=== PATIENT | male | born 1955 | race African-American/Black ===

== ENCOUNTER 2021-06-13 16:06 | Emergency (ER) | payer MEDICAID, OTHER ==
[~2021-06-13] VITALS: Ht 185.4 cm; Wt 99.8 kg
[~2021-06-13 16:06] MED LIST: AMLO5TAB4 PO; DOXY-326 PO; VALS80TA2 PO
--- NOTE | 2021-06-13 16:16 | NUR ---
THE PATIENT BIBS FOR C/O HAVING BLACK STOOL NOTED SINCE 06/08/2020. DENIES PAIN. ABDOMEN SOFT AND NON-DISTENDED. DENIES N/V. WILL CONTINUE TO MONITOR THE PATIENT.
[2021-06-13] MEDS ORDERED: OMEP20TA5 PO (16:36)
[2021-06-13 16:42] VITALS: BP 133/82
--- NOTE | 2021-06-13 16:42 | NUR ---
Patient discharged to home in stable condition. Written and verbal after care instructions given. Patient verbalizes understanding of instruction.
== END 2021-06-13 16:43 | disposition home or self-care (01) ==
LOC: ER 16:06
DX: K92.1 Melena (principal); T37.8X5A Adverse effect of other specified systemic anti-infectives and antiparasitics, initial encounter; I10 Essential (primary) hypertension; Z90.89 Acquired absence of other organs; Z88.0 Allergy status to penicillin; Z88.2 Allergy status to sulfonamides; Z88.8 Allergy status to other drugs, medicaments and biological substances; Z60.2 Problems related to living alone; Z79.899 Other long term (current) drug therapy; Y92.89 Other specified places as the place of occurrence of the external cause

== ENCOUNTER 2024-03-01 17:19 | Inpatient (IN) | payer BC, OTHER ==
[~2024-03-01] VITALS: Ht 185.4 cm; Wt 91.3 kg
[~2024-03-01 17:19] MED LIST changes: +OMEP20TA5 PO
[2024-03-01] MEDS ORDERED: FAMOTIDINE (20 MG) 20 MG TABLET ONE (20:50)
[2024-03-01] MEDS: IV NS 0.9% 1,000 ML BAG IV ONE (20:58)
[2024-03-01 20:59] LABS: BASOPHILS % (AUTO) 0.3 % (0.0-2.0); EOSINOPHILS % (AUTO) 0.4 % (0.0-6.0); HEMATOCRIT 44 % (39-51); HEMOGLOBIN 14.7 g/dL (13.5-17.5); LYMPHOCYTES # (AUTO) 1.8 K/uL (0.8-4.8); LYMPHOCYTES % (AUTO) 21.4 % (20.0-44.0); MEAN CORPUSCULAR HEMOGLOBIN 33 PG (26.0-33.0); MEAN CORPUSCULAR HGB CONC 33 g/dl (31.0-36.0); MEAN CORPUSCULAR VOLUME 98 fL (80-96); MONOCYTES # (AUTO) 1.1 K/uL (0.1-1.30); MONOCYTES % (AUTO) 12.6 % (2.0-12.0); NEUTROPHILS # (AUTO) 5.5 K/uL (1.8-8.9); NEUTROPHILS % (AUTO) 65.3 % (43.0-81.0); PLATELET COUNT (AUTO) 274 K/uL (150-450); RED BLOOD CELL COUNT(AUTO) 4.49 MIL/uL (4.5-6.0); RED CELL DISTRIBUTION WIDTH 13.6 % (11.5-15.0); WHITE BLOOD COUNT (AUTO) 8.5 K/uL (4.3-11.0)
[2024-03-01] MEDS: FAMOTIDINE (20 MG) 20 MG TABLET PO ONE (20:59)
[2024-03-01 21:36] LABS: ALBUMIN 3.5 g/dL (3.4-5.0); BILIRUBIN,DIRECT 0.1 mg/dL (0.0-0.2); CALCIUM, SERUM 8.7 mg/dL (8.5-10.1); CREATININE 2.1 mg/dL (0.6-1.3); POTASSIUM 4.6 mmol/L (3.5-5.1); TOTAL PROTEIN, SERUM 8.1 g/dL (6.4-8.2)
[2024-03-01 21:41] LABS: APPEARANCE,URINE CLEAR (CLEAR); BILIRUBIN,URINE NEGATIVE (NEGATIVE); BLOOD, URINE NEGATIVE Ery/uL (NEGATIVE); COLOR,URINE YELLOW (YELLOW); KETONES,URINE NEGATIVE (NEGATIVE); LEUKOCYTE ESTERASE ,URINE NEGATIVE (NEGATIVE); NITRITE, URINE NEGATIVE (NEGATIVE); PROTEIN,URINE TRACE mg/dl (NEGATIVE); UGLUCOSE NEGATIVE (NEGATIVE); UROBILINOGEN,URINE 0.2 EU/dL (0.2)
[2024-03-01 21:49] LABS: RBC,URINE 0-2 /HPF (0-2); WBC,URINE 0-2 /HPF (0-3)
[2024-03-01 21:50] LABS: ADD URINE CULTURE NO; BACTERIA,URINE None seen /HPF (None Seen); HYALINE CASTS, URINE Few /LPF (None Seen); MUCUS,URINE Few /LPF (None Seen)
[2024-03-01 21:56] LABS: BILIRUBIN,TOTAL 0.2 mg/dL (0.2-1.0)
[2024-03-01] MEDS ORDERED: MAG HYDROX/AL HYDROX/SIMETH 30 ML UDC ONE (23:03)
[2024-03-01] MEDS ORDERED: PANTOPRAZOLE 40 MG TABLET.DR PO ONE (23:03)
[2024-03-01] MEDS ORDERED: ZOLPIDEM TARTRATE 5 MG TABLET PO PRN (23:30)
[2024-03-01] MEDS ORDERED: ACETAMINOPHEN 325 MG TABLET PO PRN (23:30)
[2024-03-01] MEDS ORDERED: ONDANSETRON HCL/PF 4 MG/2 ML VIAL IVP PRN (23:30)
[2024-03-01] MEDS ORDERED: MAG HYDROX/AL HYDROX/SIMETH 30 ML UDC PO PRN (23:30)
[2024-03-01] MEDS ORDERED: Z GUARD REMEDY 4 OZ OINT TP PRN (23:30)
[2024-03-01] MEDS ORDERED: MAGNESIUM HYDROXIDE 30 ML UDC PO PRN (23:30)
[2024-03-01] MEDS: PANTOPRAZOLE 40 MG TABLET.DR PO ONE (23:33)
[2024-03-01] MEDS: MAG HYDROX/AL HYDROX/SIMETH 30 ML UDC PO ONE (23:33)
[2024-03-02 00:18] VITALS: BP 128/72; TEMP 98.6; O2SAT 98
[2024-03-02] MEDS: IV NS 0.9% 1,000 ML IV PRN (00:29)
[2024-03-02 00:46] VITALS: BP 128/72; TEMP 98.6; O2SAT 98
[2024-03-02 07:23] LABS: BASOPHILS % (AUTO) 0.2 % (0.0-2.0); EOSINOPHILS % (AUTO) 0.5 % (0.0-6.0); HEMATOCRIT 40 % (39-51); HEMOGLOBIN 13.6 g/dL (13.5-17.5); LYMPHOCYTES # (AUTO) 1.5 K/uL (0.8-4.8); LYMPHOCYTES % (AUTO) 21.4 % (20.0-44.0); MEAN CORPUSCULAR HEMOGLOBIN 34 PG (26.0-33.0); MEAN CORPUSCULAR HGB CONC 34 g/dl (31.0-36.0); MEAN CORPUSCULAR VOLUME 99 fL (80-96); MONOCYTES # (AUTO) 0.9 K/uL (0.1-1.30); MONOCYTES % (AUTO) 13.1 % (2.0-12.0); NEUTROPHILS # (AUTO) 4.6 K/uL (1.8-8.9); NEUTROPHILS % (AUTO) 64.8 % (43.0-81.0); PLATELET COUNT (AUTO) 264 K/uL (150-450); RED BLOOD CELL COUNT(AUTO) 4.04 MIL/uL (4.5-6.0); RED CELL DISTRIBUTION WIDTH 13.2 % (11.5-15.0); WHITE BLOOD COUNT (AUTO) 7.2 K/uL (4.3-11.0)
[2024-03-02 07:30] VITALS: BP 99/66; TEMP 97.9; O2SAT 96
[2024-03-02 07:37] LABS: CALCIUM, SERUM 8.2 mg/dL (8.5-10.1); CREATININE 1.7 mg/dL (0.6-1.3); MAGNESIUM 1.5 mg/dL (1.8-2.4); PHOSPHORUS 2.6 mg/dL (2.5-4.9); POTASSIUM 3.8 mmol/L (3.5-5.1)
[2024-03-02] MEDS ORDERED: OMEP20TA5 PO (08:05)
[2024-03-02] MEDS ORDERED: METF-442 PO (08:05)
[2024-03-02] MEDS ORDERED: AMLO-213 PO (08:05)
[2024-03-02] MEDS ORDERED: ATOR40TA PO (08:05)
[2024-03-02] MEDS ORDERED: TEST200V IM (08:06)
[2024-03-02] MEDS ORDERED: SPIR50TA PO (08:06)
[2024-03-02] MEDS ORDERED: HYDR25TA4 PO (08:06)
[2024-03-02] MEDS ORDERED: DOLU1TAB2 PO (08:06)
[2024-03-02] MEDS ORDERED: VALS320T16 PO (08:06)
[2024-03-02] MEDS: FAMOTIDINE/PF INJ 20 MG/2 ML VIAL IV SCH (08:14)
[2024-03-02] MEDS: MAGNESIUM OXIDE 400 MG TABLET PO ONE (10:28)
[2024-03-02] MEDS ORDERED: hydrALAZINE HCL IV 20 MG VIAL IV PRN (12:00)
[2024-03-02] MEDS ORDERED: DEXTROSE 50%-WATER 50 ML DISP.SYRIN IV PRN (12:00)
[2024-03-02] MEDS: BLOOD SUGAR DIAGNOSTIC 1 EACH STRIP IN SCH (12:16)
[2024-03-02] MEDS: INSULIN REGULAR, HUMAN 100 UNIT/ML 3 ML VIAL SQ PRN (12:17)
[2024-03-02] MEDS: CHOLESTYRAMINE/ASPARTAME 4 G/PKT PACKET PO SCH (12:22)
[2024-03-02] MEDS: CEFEPIME 1 GM in IV D5W 50 ML IV SCH (13:12)
[2024-03-02 16:00] VITALS: BP 107/69; TEMP 98.2; O2SAT 98
[2024-03-02 20:14] VITALS: BP 123/76; TEMP 98.8; O2SAT 97
[2024-03-03 08:00] VITALS: BP 117/60; TEMP 98.2; O2SAT 99
[2024-03-03 08:20] LABS: BASOPHILS % (AUTO) 0.4 % (0.0-2.0); EOSINOPHILS # (AUTO) 0.1 K/uL (0.0-0.7); EOSINOPHILS % (AUTO) 2.5 % (0.0-6.0); HEMATOCRIT 39 % (39-51); HEMOGLOBIN 13.3 g/dL (13.5-17.5); LYMPHOCYTES # (AUTO) 1.6 K/uL (0.8-4.8); LYMPHOCYTES % (AUTO) 29.5 % (20.0-44.0); MEAN CORPUSCULAR HEMOGLOBIN 34 PG (26.0-33.0); MEAN CORPUSCULAR HGB CONC 34 g/dl (31.0-36.0); MEAN CORPUSCULAR VOLUME 99 fL (80-96); MONOCYTES # (AUTO) 0.7 K/uL (0.1-1.30); MONOCYTES % (AUTO) 12.5 % (2.0-12.0); NEUTROPHILS % (AUTO) 55.1 % (43.0-81.0); PLATELET COUNT (AUTO) 268 K/uL (150-450); RED BLOOD CELL COUNT(AUTO) 3.91 MIL/uL (4.5-6.0); RED CELL DISTRIBUTION WIDTH 13.1 % (11.5-15.0); WHITE BLOOD COUNT (AUTO) 5.4 K/uL (4.3-11.0)
[2024-03-03] MEDS: ATORVASTATIN 40 MG TABLET PO SCH (08:25)
[2024-03-03] MEDS: AMLODIPINE BESYLATE 10 MG TABLET PO SCH (08:25)
[2024-03-03] MEDS: DOVATO PO SCH (08:27)
[2024-03-03 08:30] LABS: BILIRUBIN,TOTAL 0.4 mg/dL (0.2-1.0); CALCIUM, SERUM 8.5 mg/dL (8.5-10.1); CREATININE 1.3 mg/dL (0.6-1.3); MAGNESIUM 1.7 mg/dL (1.8-2.4); PHOSPHORUS 2.4 mg/dL (2.5-4.9); POTASSIUM 3.7 mmol/L (3.5-5.1)
[2024-03-03] MEDS: MAGNESIUM OXIDE 400 MG TABLET PO ONE (10:37)
[2024-03-03] MEDS ORDERED: VANC125C11 PO (15:09)
[2024-03-03] MEDS: VANCOMYCIN HCL 125 MG/2.5 ML ORAL.SUSP PO SCH (15:38)
[2024-03-03] MEDS: K PHOS NEUTRAL 250 MG TABLET PO ONE (15:56)
[2024-03-03 16:00] VITALS: BP 125/73; TEMP 98.4; O2SAT 97
[2024-03-03] MEDS: METFORMIN 500 MG TABLET PO SCH (16:28)
[2024-03-03 20:00] VITALS: BP 128/67; TEMP 98.4; O2SAT 96
[2024-03-04 07:00] VITALS: BP 134/74; TEMP 97.9; O2SAT 100
[2024-03-04 07:11] LABS: BILIRUBIN,TOTAL 0.3 mg/dL (0.2-1.0); CALCIUM, SERUM 8.5 mg/dL (8.5-10.1); CREATININE 1.2 mg/dL (0.6-1.3); MAGNESIUM 1.8 mg/dL (1.8-2.4); PHOSPHORUS 3.1 mg/dL (2.5-4.9); POTASSIUM 3.5 mmol/L (3.5-5.1); TOTAL PROTEIN, SERUM 6.8 g/dL (6.4-8.2)
[2024-03-04] MEDS: FAMOTIDINE (20 MG) 20 MG TABLET PO SCH (09:44)
[2024-03-04 09:45] VITALS: BP 134/54
[2024-03-04] MEDS ORDERED: CHOL4PAC4 PO (12:57)
[2024-03-05 01:10] LABS: PTH, INTACT 16 pg/mL (15-65)
[2024-03-08 07:06] LABS: *SPE A/G RATIO 0.8 (0.7-1.7); *SPE ALBUMIN 2.9 g/dL (2.9-4.4); *SPE ALPHA-1-GLOBULIN 0.3 g/dL (0.0-0.4); *SPE ALPHA-2-GLOBULIN 0.8 g/dL (0.4-1.0); *SPE BETA GLOBULIN 1.1 g/dL (0.7-1.3); *SPE GLOBULIN, TOTAL 3.5 g/dL (2.2-3.9); *SPE M-SPIKE Not Observed g/dL (Not Observed); *SPE PROTEIN TOTAL 6.4 g/dL (6.0-8.5); *SPEGAMMA GLOBULIN 1.3 g/dL (0.4-1.8)
== END 2024-03-04 14:05 | disposition home or self-care (01) | DRG 371 ==
LOC: ER 18:00 → MED 23:14
PROVIDERS: ADMIT Nurse Practitioner Family; ATTEND Internal Medicine
DX: A04.72 Enterocolitis due to Clostridium difficile, not specified as recurrent (principal); N17.0 Acute kidney failure with tubular necrosis; E86.0 Dehydration; K21.9 Gastro-esophageal reflux disease without esophagitis; E11.9 Type 2 diabetes mellitus without complications; E83.39 Other disorders of phosphorus metabolism; M89.8X9 Other specified disorders of bone, unspecified site; Z88.0 Allergy status to penicillin; Z88.2 Allergy status to sulfonamides; Z82.3 Family history of stroke; Z79.899 Other long term (current) drug therapy; Z82.49 Family history of ischemic heart disease and other diseases of the circulatory system; E83.42 Hypomagnesemia; I10 Essential (primary) hypertension; R53.1 Weakness; N20.0 Calculus of kidney; Z83.3 Family history of diabetes mellitus; Z88.3 Allergy status to other anti-infective agents; Z79.84 Long term (current) use of oral hypoglycemic drugs
CPT/HCPCS: 36415; 76770-TC; 80048-TC; 80053-TC; 80076-TC; 81001; 82550-TC; 82962-TC; 83690-TC; 83735-TC; 83970; 84100-TC; 84155; 84165; 85025-TC; A4223; G0378; J0692; J1815; J3490; J7030; J7060